=== PATIENT | female | born 1990 | race African-American/Black ===

== ENCOUNTER 2016-09-17 21:02 | Emergency (ER) | payer MEDICAID ==
[~2016-09-17] VITALS: Ht 170.2 cm; Wt 90.0 kg
[2016-09-17] MEDS ORDERED: ACETAMINOPHEN 500MG TABLET PO ONE (22:00)
[2016-09-17] MEDS ORDERED: SODIUM CHLORIDE 0.9% 1,000 ML IV ONE (22:30)
[2016-09-17] MEDS ORDERED: POLYETHYLENE GLYCOL 3350 (17GM) 1 DOSE PACK PO ONE (22:30)
[2016-09-17 23:02] LABS: HEMATOCRIT. 34.6 % (36.0-48.0); MEAN CORPUSCULAR HEMOGLOBIN 28.6 pg (28.0-32.0); MEAN CORPUSCULAR HGB CONC 31.9 g/dL (31.0-37.0); MEAN CORPUSCULAR VOLUME 89.7 fL (81.0-99.0); MEAN PLATELET VOLUME 8.2 fl (7.4-10.4); PLATELET 267 x1000/uL (130-400); RED BLOOD CELL COUNT 3.85 mill/uL (4.2-5.4); RED CELL DISTRIBUTION WIDTH 15.5 % (11.6-14.6); WHITE BLOOD COUNT 17.7 x1000/uL (4.5-11.0)
[2016-09-17 23:05] LABS: CHLORIDE 104 mEq/L (98-107); INDEX HEMOLYSI 1 (1-3); INDEX ICTERIC 1 (1-4); INDEX LIPEMIC 1 (1-3)
[2016-09-17 23:12] LABS: DIFFERENTIAL COMMENT 1
[2016-09-17 23:13] LABS: ALANINE AMINOTRANSFERASE 15 IU/L (13-61); ALBUMIN 3.5 g/dL (3.4-5.0); ANION GAP 13; CALCIUM 8.5 mg/dL (8.5-10.1); CARBON DIOXIDE 27 mEq/L (21-32); UREA NITROGEN BLOOD 7 mg/dL (7-21); eGFR > 60 mL/min (>60)
[2016-09-18 00:10] LABS: CLARITY URINE CLOUDY (CLEAR); COLOR URINE YELLOW (YELLOW); GLUCOSE URINE NEGATIVE (NEGATIVE); KETONES URINE NEGATIVE (NEGATIVE); LEUKOCYTE ESTERASE URINE TRACE (NEGATIVE); NITRITE URINE NEGATIVE (NEGATIVE); OCCULT BLOOD URINE 1+ (NEGATIVE); PH URINE 7.5 (4.5-8.0); PROTEIN URINE NEGATIVE (NEGATIVE); SPECIFIC GRAVITY URINE 1.017 (1.005-1.030)
[2016-09-18] MEDS ORDERED: ONDANSETRON 4MG ODT PO ONE (00:15)
[2016-09-18 00:45] LABS: SQUAMOUS EPITHELIAL CELL URINE 1+ /lpf (RARE/1+)
[2016-09-18 00:46] LABS: RBC URINE 0-2 /hpf (0-2)
[2016-09-18 00:47] LABS: BACTERIA URINE 2+
[2016-09-18] MEDS ORDERED: SODIUM CHLORIDE 0.9% 1,000 ML IV ONE (01:15)
[2016-09-18] MEDS ORDERED: PENICILLIN G BENZATHINE 1,200,000 UNITS/2ML SYR IM ONE (01:15)
[2016-09-18] MEDS ORDERED: CEFTRIAXONE 1 G PREMIX 50 ML IV NR (01:18)
[2016-09-18 02:16] LABS: PLATELET ESTIMATE NORMAL
[2016-09-18 03:00] VITALS: BP 130/80
== END 2016-09-18 03:16 | disposition home or self-care (01) ==
LOC: ER 21:05
DX: J06.0 Acute laryngopharyngitis (principal); N12 Tubulo-interstitial nephritis, not specified as acute or chronic; K59.00 Constipation, unspecified; F17.210 Nicotine dependence, cigarettes, uncomplicated
CPT/HCPCS: 36415; 76770; 80053; 81001; 85025; 87070; 87077; 87430; 96361; 96365; 96372; 99285; J0561; J0696; J7030; Q0162; Z7610; 81003

== ENCOUNTER 2017-01-03 22:34 | Emergency (ER) | payer MEDICAID ==
[~2017-01-03] VITALS: Ht 172.7 cm; Wt 99.0 kg
[2017-01-04 04:18] VITALS: BP 110/67
== END 2017-01-04 04:23 | disposition home or self-care (01) ==
LOC: ER 22:34
DX: S93.402A Sprain of unspecified ligament of left ankle, initial encounter (principal); M79.652 Pain in left thigh; R10.9 Unspecified abdominal pain; R55 Syncope and collapse; W19.XXXA Unspecified fall, initial encounter; Y93.89 Activity, other specified; Y92.89 Other specified places as the place of occurrence of the external cause; Y99.8 Other external cause status
CPT/HCPCS: 72100; 73630; 81025; 99284; Z7610

== ENCOUNTER 2017-03-21 19:52 | Emergency (ER) | payer MEDICAID ==
[~2017-03-21] VITALS: Ht 170.2 cm; Wt 77.0 kg
[2017-03-21 20:06] VITALS: BP 111/70
== END 2017-03-21 21:45 | disposition left against medical advice (07) ==
LOC: ER 19:52
DX: R06.02 Shortness of breath (principal); Z53.21 Procedure and treatment not carried out due to patient leaving prior to being seen by health care provider